=== PATIENT | male | born 1995 | race Caucasian/White ===

== ENCOUNTER 2018-11-07 23:56 | Emergency (ER) | payer SELFPAY ==
[2018-11-07 23:57] VITALS: BP 145/112
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
== END 2018-11-08 00:12 ==
LOC: ER 23:58
DX: F10.920 Alcohol use, unspecified with intoxication, uncomplicated (principal)
CPT/HCPCS: 99281